=== PATIENT | male | born 1965 | race Caucasian/White ===

== ENCOUNTER 2017-10-09 09:24 | Day surgery (SDC) | payer BC ==
[~2017-10-09 09:24] MED LIST: Sodium Chloride 0.9% 10 ML Syringe FLUSH PRN
[2017-10-09] MEDS: Lidocaine 1%/Sod Bicarbonate in NS 8.4% 1 ML Syringe IDERM PRN (09:49)
[2017-10-09] MEDS: Lactated Ringers 1,000 ML IV SCH (09:50)
[2017-10-09] MEDS ORDERED: Lidocaine 1% 4 ML ONE (09:54)
[2017-10-09] MEDS ORDERED: Propofol 200 MG/20 ML SDV ONE ×2 (09:54→11:14)
--- NOTE | 2017-10-09 10:05 | PCM.PREANE ---
Preanesthetic Assessment - Anesthesia/Transfusion/Family Hx Anesthesia History: Prior Anesthesia Without Reaction Family History of Anesthesia Reaction: No Transfusion History: No Prior Transfusion(s) Intubation History: Unknown - Review of Systems General: No Symptoms Pulmonary: No Symptoms (ETOH/occasionally) Cardiovascular: No Symptoms Gastrointestinal: No Symptoms Neurological: No Symptoms Other: Reports: None - Physical Assessment NPO Status Date: 10/08/17 NPO Status Time: 21:00 Pulse: 49 O2 Sat by Pulse Oximetry: 96 Respiratory Rate: 20 Blood Pressure: 102/62 Temperature: 36.3 C Height: 1.7 m Weight: 80 kg ASA Class: 1 Mental Status: Alert & Oriented x3 Airway Class: Mallampati = 2 Dentition: Reports: Normal Dentition, Caries Thyro-Mental Finger Breadths: 3 Mouth Opening Finger Breadths: 3 ROM/Head Extension: Full Lungs: Clear to Auscultation, Normal Respiratory Effort Cardiovascular: Regular Rate, Regular Rhythm, No Murmurs - Allergies Allergies/Adverse Reactions: Allergies Allergy/AdvReac Type Severity Reaction Status Date / Time No Known Allergies Allergy Verified 10/08/17 13:26 - Anesthesia Plan Pre-Op Medication Ordered: None - Acknowledgements Anesthesia Type Planned: MAC Pt an Appropriate Candidate for the Planned Anesthesia: Yes Alternatives and Risks of Anesthesia Discussed w Pt/Guardian: Yes Pt/Guardian Understands and Agrees with Anesthesia Plan: Yes PreAnesthesia Questionnaire HEENT History: Reports: Impaired Vision Cardiovascular History: Reports: High Cholesterol Respiratory History: Reports: None Gastrointestinal History: Reports: None Genitourinary History: Reports: None [employer] History: Reports: None Musculoskeletal History: Reports: None Neurological History: Reports: None Psychiatric History: Reports: None Endocrine/Metabolic History: Reports: None Hematologic History: Reports: None Immunologic History: Reports: None Oncologic (Cancer) History: Reports: None Dermatologic History: Reports: None - Past Surgical History Head Surgeries/Procedures: Reports: None HEENT Surgical History: Reports: Adenoidectomy Cardiovascular Surgical History: Reports: None Respiratory Surgical History: Reports: None GI Surgical History: Reports: Hernia, Inguinal Female Surgical History: Reports: None Male Surgical History: Reports: None Endocrine Surgical History: Reports: None Neurological Surgical History: Reports: None Musculoskeletal Surgical History: Reports: None Oncologic Surgical History: Reports: None Dermatological Surgical History: Reports: None - SUBSTANCE USE Smoking Status *Q: Never Smoker Recreational Drug Use History: No - HOME MEDS Home Medications: Home Meds . [No Known Home Meds] 10/08/17 [History] - CURRENT (IN HOUSE) MEDS Current Meds: Current Medications Lactated Ringer's (Ringers, Lactated) 1,000 mls @ 125 mls/hr IV ASDIRECTED INDIRA Stop: 10/09/17 23:00 Lidocaine/Sodium Bicarbonate (Buffered Lidocaine 1% In Ns 8.4%) 0.25 ml IDERM ONETIME PRN PRN Reason: Prior to IV Start Stop: 10/09/17 18:00 Sodium Chloride (Saline Flush) 10 ml FLUSH ASDIRECTED PRN PRN Reason: Keep Vein Open Stop: 10/09/17 18:00 Discontinued Medications Lidocaine HCl (Xylocaine-Mpf 1%) Confirm Administered Dose 4 mls @ as directed .ROUTE .STK-MED ONE Stop: 10/09/17 09:55 Propofol (Diprivan 20 Ml) Confirm Administered Dose 400 mg .ROUTE .STK-MED ONE Stop: 10/09/17 09:55
[2017-10-09] MEDS ORDERED: Midazolam 1 MG/ML 2 ML SDV ONE (10:43)
--- NOTE | 2017-10-09 11:18 | PCM.OPNOTE ---
- General Post-Op/Procedure Note Date of Surgery/Procedure: 10/09/17 Operative Procedure(s): Screening colonoscopy Findings: Sigmoid diverticulosis tortuous sigmoid colon Pre Op Diagnosis: Screening colonoscopy Post-Op Diagnosis: Sigmoid diverticulosis uncomplicated Anesthesia Technique: MAC, Moderate Sedation Primary Surgeon: Juan Antonio Christianson Pathology: None EBL in mLs: 0 Complications: None Condition: Good Free Text/Narrative:: After adequate IV sedation and analgesia was obtained with monitoring the patient was placed on his left side. Perianal inspection and digital rectal examination were performed next and were grossly normal. The prostate was grossly normal as well. A lubricated colonoscope was inserted into the rectum then attempted to advance through a tortuous colon to the cecum. I had some difficulty but after application of abdominal pressure I was able to navigate to the proximal colon. The cecum and appendiceal orifice were observed. The bowel preparation was fair. The cecum right colon and transverse colons were endoscopically normal with no mass lesions or inflammatory changes seen. The descending was likewise normal as well. The sigmoid was tortuous and had uncomplicated diverticuli. The circular muscle was slightly hypertrophied. The rectum in both views was unremarkable. Photographs were taken for the patient and for the medical record.
== END 2017-10-09 12:15 | disposition home or self-care (01) ==
LOC: JD.SDS 09:24
PROVIDERS: ATTEND Surgery
DX: Z12.11 Encounter for screening for malignant neoplasm of colon (principal); K57.30 Diverticulosis of large intestine without perforation or abscess without bleeding; K31.89 Other diseases of stomach and duodenum; E78.5 Hyperlipidemia, unspecified; L57.0 Actinic keratosis
CPT/HCPCS: 45378; J2250; J7120; 00812; J2704